=== PATIENT | female | born 1950 | race Caucasian/White ===

== ENCOUNTER 2023-01-08 15:36 | Emergency (ER) | payer OTHER, MEDICAID ==
[~2023-01-08] VITALS: Ht 157.5 cm; Wt 72.6 kg
[~2023-01-08 15:36] MED LIST: FLUO40CA8 PO; HYDR-500 PO; HYDR25TA4 PO; PROP40TA7 PO; SIMV-43 PO; ZOLP10TA2 PO
[2023-01-08 15:51] VITALS: BP_SYST 131
[2023-01-08 17:28] LABS: BASOPHILS # (AUTO) 0.1 K/uL (0.0-0.2); BASOPHILS % (AUTO) 0.4 % (0.0-2.0); EOSINOPHILS % (AUTO) 0.1 % (0.0-4.0); HEMATOCRIT 33.6 % (36-48); HEMOGLOBIN 11.3 g/dL (12.0-16.0); LYMPHOCYTES % (AUTO) 5.5 % (20.5-51.5); MEAN CORPUSCULAR HEMOGLOBIN 31 pg (27-31); MEAN CORPUSCULAR HGB CONC 34 % (32-36); MEAN CORPUSCULAR VOLUME 93 fL (79.0-98.0); MONOCYTES % (AUTO) 5.8 % (1.7-9.3); NEUTROPHILS # (AUTO) 15.7 K/uL (1.8-7.7); NEUTROPHILS % (AUTO) 88.2 % (40.0-70.0); PLATELET COUNT (AUTO) 258 K/uL (130-430); RED CELL DISTRIBUTION WIDTH 13.8 % (9.0-15.0); WHITE BLOOD COUNT (AUTO) 17.8 K/uL (4.8-10.8)
[2023-01-08 17:38] LABS: CALCIUM 8.2 mg/dL (8.4-11.0); CREATININE 0.61 mg/dL (0.55-1.30)
--- NOTE | 2023-01-08 17:45 | NUR ---
Placed in room 3 . Placed on director of cardiac cath lab, blood pressure machine and pulse oximeter. To gown for exam. Side rails up.
--- NOTE | 2023-01-08 17:48 | NUR ---
Pt C/O epigastric pain w/ Nausea AOX4 VSS Able to make needs known Will continue to monitor
--- NOTE | 2023-01-08 17:50 | NUR ---
Patient given written and verbal discharge instructions and verbalizes understanding. ER MD discussed with patient the results and treatment provided. Patient in stable condition. ID arm band removed. Rx of Amox given. Patient educated on pain management and to follow up with PMD. Pain Scale 0. Opportunity for questions provided and answered. Medication side effect fact sheet provided.
[2023-01-08] MEDS ORDERED: AUG875 PO (18:10)
[2023-01-08] MEDS ORDERED: ONDA-8 TL (18:10)
[2023-01-08] MEDS ORDERED: ONDANSETRON 4 MG ODT TAB PO ONE (18:15)
[2023-01-08] MEDS ORDERED: POTASSIUM CHLORIDE 20 MEQ/PKT PACKET PO ONE (18:15)
== END 2023-01-08 22:17 | disposition home or self-care (01) ==
LOC: SED 15:36
DX: K57.92 Diverticulitis of intestine, part unspecified, without perforation or abscess without bleeding (principal); E87.6 Hypokalemia; R11.2 Nausea with vomiting, unspecified; I10 Essential (primary) hypertension; K21.9 Gastro-esophageal reflux disease without esophagitis; Z79.899 Other long term (current) drug therapy
CPT/HCPCS: 99284; 74176; 80053; 83690; 85025; 36415; 76376; Q0162

== ENCOUNTER 2023-03-04 13:36 | Emergency (ER) | payer OTHER, MEDICAID ==
[~2023-03-04] VITALS: Ht 165.1 cm; Wt 70.3 kg
[~2023-03-04 13:36] MED LIST changes: +AUG875 PO; +ONDA-8 TL
[2023-03-04 13:49] VITALS: BP_SYST 156; PULSE 66; RESP 20; TEMP 97.7; O2SAT 99
[2023-03-04] MEDS ORDERED: KETOROLAC TROMETHAMINE 30 MG VIAL IVP ONE (14:30)
[2023-03-04] MEDS ORDERED: OXYC-128 PO (15:13)
[2023-03-04] MEDS ORDERED: MORPHINE 2 MG/ML INJ. SYRINGE IVP ONE (15:15)
[2023-03-04 16:29] VITALS: BP_SYST 189; PULSE 57; RESP 18; TEMP 98.8; O2SAT 97
== END 2023-03-04 16:30 | disposition home or self-care (01) ==
LOC: SED 13:36
DX: M75.31 Calcific tendinitis of right shoulder (principal); M25.511 Pain in right shoulder; M54.2 Cervicalgia; K21.9 Gastro-esophageal reflux disease without esophagitis; I10 Essential (primary) hypertension; Z79.899 Other long term (current) drug therapy
CPT/HCPCS: 99284; 96374; 73030; 96372; J1885; J2270